=== PATIENT | female | born 2000 | race Caucasian/White ===

== ENCOUNTER 2022-08-21 18:31 | Emergency (ER) | payer MEDICAID ==
[~2022-08-21] VITALS: Ht 152.4 cm; Wt 51.8 kg
[2022-08-21] MEDS ORDERED: KETOROLAC TROMETHAMINE 30 MG/ML VIAL IM ONE (20:15)
[2022-08-21 21:00] VITALS: BP 121/73
== END 2022-08-21 21:00 | disposition home or self-care (01) ==
LOC: EMS 18:39
DX: G50.1 Atypical facial pain (principal)
CPT/HCPCS: 99283; 96372; J1885

== ENCOUNTER 2023-02-13 19:43 | Emergency (ER) | payer MEDICAID ==
[~2023-02-13] VITALS: Ht 152.4 cm; Wt 50.0 kg
[2023-02-13 20:04] VITALS: TEMP 98.6
[2023-02-13 21:12] LABS: APPEARANCE,URINE CLEAR (CLEAR); BILIRUBIN,URINE NEGATIVE (NEGATIVE); COLOR,URINE COLORLESS (YELLOW); GLUCOSE, URINE (UA) NEGATIVE (NEGATIVE); KETONES,URINE NEGATIVE (NEGATIVE); LEUKOCYTE ESTERASE ,URINE MODERATE (NEGATIVE); NITRATE,URINE NEGATIVE (NEGATIVE); OCCULT BLOOD,URINE NEGATIVE (NEGATIVE); PROTEIN,URINE NEGATIVE (NEGATIVE); SPECIFIC GRAVITIY, URINE 1.008 (1.003-1.030); UROBILINOGEN,URINE <=1.0 mg/dL (<=1.0)
[2023-02-13 21:20] LABS: BACTERIA,URINE Rare /HPF (None Seen); RBC,URINE None Seen /HPF (0-2); SQUAMOUS EPITHELIAL CELL,UR Few /LPF (None Seen)
[2023-02-13] MEDS ORDERED: MAG HYDROX/AL HYDROX/SIMETH 30 ML SUSP UDCUP PO ONE (22:15)
[2023-02-13] MEDS ORDERED: ONDANSETRON HCL 4 MG TABLET PO ONE (22:15)
[2023-02-13] MEDS ORDERED: FAMOTIDINE 20 MG TABLET PO ONE (22:15)
[2023-02-13] MEDS ORDERED: ACETAMINOPHEN 325 MG TABLET PO ONE (22:15)
[2023-02-13 22:28] LABS: BASOPHILS % (AUTO) 0.4 % (0.0-2.0); EOSINOPHILS % (AUTO) 1.3 % (1.0-6.0); HEMATOCRIT 37.6 % (36-46); HEMOGLOBIN 12.2 g/dL (12.0-16.0); LYMPHOCYTES # (AUTO) 2.7 K/uL (1.0-4.8); LYMPHOCYTES % (AUTO) 40.7 % (22.0-44.0); MEAN CORPUSCULAR HEMOGLOBIN 29.5 pg (26.0-34.0); MEAN CORPUSCULAR HGB CONC 32.4 G/dL (31.0-37.0); MEAN CORPUSCULAR VOLUME 91 fL (80-100); MONOCYTES # (AUTO) 0.3 K/uL (0.1-1.0); MONOCYTES % (AUTO) 5.1 % (2.0-9.0); NEUTROPHILS # (AUTO) 3.5 K/uL (1.8-7.7); NEUTROPHILS % (AUTO) 52.5 % (40.0-70.0); PLATELET COUNT (AUTO) 271 K/uL (150-450); RED BLOOD CELL COUNT(AUTO) 4.14 MIL/uL (4.00-5.20); RED CELL DISTRIBUTION WIDTH 13.6 % (11.5-14.5); WHITE BLOOD COUNT (AUTO) 6.7 K/uL (4.5-11.0)
[2023-02-13 22:41] LABS: ANION GAP 9 mmol/L (8-16); CALCIUM, TOTAL 9.1 mg/dL (8.8-10.5); CARBON DIOXIDE 27 mmol/L (22-29); CHLORIDE 103 mmol/L (98-107); GLOMERULAR FILTR. RATE CALC > 60 mL/min (>60); GLUCOSE,RANDOM 85 mg/dL (70-110); POTASSIUM 3.6 mmol/L (3.5-5.1); SODIUM SERUM 139 mmol/L (136-145); UREA NITROGEN, BLOOD 18 mg/dL (7-18)
[2023-02-13 22:46] LABS: ALANINE AMINOTRANSFERASE 12 U/L (12-78); ALBUMIN 4.1 g/dL (3.4-5.0); ALKALINE PHOSPHATASE 50 U/L (46-116); ASPARTATE AMINOTRANSFERASE 17 U/L (15-37); BILIRUBIN,TOTAL 0.2 mg/dL (0.1-1.0); LIPASE 77 U/L (16-77); TOTAL PROTEIN, SERUM 7.8 g/dL (6.4-8.2)
[2023-02-13] MEDS ORDERED: IOHEXOL 350 MG/ML 100 ML VIAL ONE (23:00)
[2023-02-13] MEDS ORDERED: SODIUM CHLORIDE 0.9% 100 ML ONE (23:00)
[2023-02-14 03:37] VITALS: BP 94/60; PULSE 70; RESP 14
[2023-02-14] MEDS ORDERED: CEPH-558 PO (04:35)
[2023-02-14] MEDS ORDERED: CEPHALEXIN MONOHYDRATE 500 MG CAPSULE PO ONE (05:00)
== END 2023-02-14 04:53 | disposition home or self-care (01) ==
LOC: EMS 19:44
DX: N39.0 Urinary tract infection, site not specified (principal); R10.13 Epigastric pain
CPT/HCPCS: 99285; 74177; 76700; 80053; 81001; 83690; 85025; 36415; 87086; 87186; Q0162; Q9967; J7050

== ENCOUNTER 2023-02-23 20:09 | Emergency (ER) | payer MEDICAID ==
[~2023-02-23] VITALS: Ht 152.4 cm; Wt 50.9 kg
[~2023-02-23 20:09] MED LIST: CEPH-558 PO
[2023-02-23 23:23] VITALS: TEMP 98.3
[2023-02-24] MEDS ORDERED: FLUORESCEIN SODIUM 1 MG STRIP ONE (01:15)
[2023-02-24 01:30] VITALS: BP 124/73; PULSE 68; RESP 13
== END 2023-02-24 02:07 | disposition home or self-care (01) ==
LOC: EMS 20:11
DX: M54.32 Sciatica, left side (principal); R51.9 Headache, unspecified
CPT/HCPCS: 70486; 99284; Z7502; Z7610